=== PATIENT | male | born 1950 ===

== ENCOUNTER 2024-04-14 13:07 | Outpatient (REF) | payer MEDICARE, OTHER, SELFPAY ==
--- NOTE | ~2024-04-14 | XR_ITS ---
CLINICAL HISTORY: M54.16 - Radiculopathy, lumbar region 4 views lumbar spine Comparison: None Findings: There is mild lower thoracic dextroscoliosis. No acute fractures. There are significant multilevel lumbar spine degenerative changes with osteophyte formation most significant within the lower lumbar spine with significantfacet bony sclerosis. There is no change in alignment on neutral, flexion and extension views with gross anatomic alignment. No acute fractures. Mild degenerative changes SI joints. IMPRESSION: No acute findings. Multilevel spondylosis as above Mild degenerative changes SI joints This document has been electronically signed by: Roosevelt Daniels MD on 04/15/2024 05:55:36
== END 2024-04-14 13:08 | disposition home or self-care (01) ==
LOC: HO.HOSX 13:07
PROVIDERS: PCP Family Medicine; Visit Provider Physician Assistant
DX: M54.16 Radiculopathy, lumbar region (principal)
CPT/HCPCS: 72110; 99202

== ENCOUNTER 2024-04-14 13:07 | Outpatient (AMB) | payer MEDICARE, OTHER, SELFPAY ==
--- NOTE | 2024-04-14 09:21 | HO.SPINEOV ---
Vital Signs 04/14/24 13:12 Height 5 ft 6 in Weight 170 lb BMI 27.4 Intake Visit Reasons: low back pain and sciatica Intake Note: Mr. Hernandez is here today c/o Right sided sciatica pain. 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 Valdes, Thank you for referring David to our office today. He is a pleasant 74-year-old male who comes in today with a chief complaint of right leg pain. He states this has been ongoing for about a year, in initially started as low back pain, but now only encompasses his right leg. He denies any known inciting incident. When describing his pain he starts his hand near the right upper thigh on the lateral side and runs it all the way down the lateral aspect of his right lower extremity terminating near the calf. He denies any numbness/tingling associated with the pain. When describing the pain he says it is a dull pain that does not feel like it is radiating from his back but rather starts near his right lateral thigh and shoots down his leg. He reports this pain can be induced by sitting for a long period of time and then standing up and attempting to mobilize. He denies any issues with walking, and states that walking actually helps to alleviate his pain. He has been to physical therapy, last completed a couple of months ago. He has attempted cortisone injections with the our office, and states he obtained about 75% relief from the injections each time. Unfortunately, he was originally getting 1-2 months of relief, and is now only having a few weeks of relief before his pain returns. 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 He is currently taking Tylenol and gabapentin in an effort to mitigate the pain. PMH: Lupus, hyperlipidemia, BPH. The patient denies any surgical history. Social hx: The patient does not smoke, reports no substance use. Medications: Warfarin, atorvastatin, alfuzosin. Allergies: NKDA Physical exam: David has 5/5 strength in his upper and lower extremities. He ambulates well and rises from a seated position without difficulty. He has no significant sensational deficits on exam. His reflexes are 2+ intact. His gait is nonantalgic and non spastic. (-) bilateral straight leg raise, (-) Rogel's, (-) Clonus. Imaging review: MRI of the lumbar spine completed at [facility] shows moderate-severe central canal stenosis at L3-4 with bilateral foraminal stenosis, worse on the right. There is also moderate-severe central canal stenosis at L4-5, and again there is bilateral foraminal stenosis, but it appears similar on both sides. There is also fairly significant facet arthropathy at these levels. Impression: David is a pleasant 74-year-old male who comes in today with a chief complaint of shooting pain down his right lower extremity. He denies any known inciting incident, and states the pain initially began as back pain about a year ago and is now isolated to his right leg. It is not associated with ambulation, and primarily occurs with positional changes. His MRI imaging shows right-sided foraminal stenosis at both L3-4 and L4-5. The L3-4 segment seems to have more severe foraminal stenosis on the right. I believe this is likely the causative segment, but his pain very well could be attributed to the compression at L4-5 as well given the dermatomal distribution of his pain. I would like to obtain injection records for David to see exactly what level he had injections as this will give us good surgical indication for what should be addressed. I would also like to send him for a set of flexion/extension x-rays as the radiologist reports he sees a slight listhesis of L4-5 on MRI, which may be contributing to his issue. After his injection records are obtained in his x-rays are complete I will review his case with Dr. Szymanski, and call the patient back with a surgical decision. He would likely benefit from right sided lumbar decompression at both L3-4, and L4-5. Thank you for allowing us to care for your patient. The total time spent with this visit with this patient was 45 minutes reviewing history, physical exam, MRI imaging review, and implementation of treatment plan or further diagnostic testing. Edwar Szymanski MD,PhD [facility] Orders: Orders XR lumbar spine 4V min 04/14/24 M54.16 - Radiculopathy, lumbar region Coding Level of Care Code New Pt Level 4 (20554) Diagnoses Lumbar radiculopathy M54.16
[2024-04-14 13:12] VITALS: BMI 27.4
== END 2024-04-14 13:54 | disposition home or self-care (01) ==
PROVIDERS: PCP Family Medicine; Visit Provider Physician Assistant
DX: M54.16 Radiculopathy, lumbar region (principal)
CPT/HCPCS: 99204

== ENCOUNTER → 2024-04-14 14:05 | Outpatient (BNV) | payer MEDICARE, OTHER, SELFPAY | PROVIDERS: PCP Family Medicine; Visit Provider Radiology Diagnostic Radiology | DX: M47.26 Other spondylosis with radiculopathy, lumbar region (principal) | CPT/HCPCS: 72110 ==

== ENCOUNTER 2024-06-23 07:25 | Day surgery (SDC) | payer MEDICARE, OTHER, SELFPAY ==
[2024-06-09 10:22] VITALS: BP 150/76; PULSE 79; RESP 16; O2SAT 98; BMI 27.9
--- NOTE | 2024-06-09 10:46 | HO.ANESPROP2 ---
Documented by User: Amparo Siddiqi NP 06/22/24 09:18 HPI - Anesthesia Eval Consult details Narrative: 74yo M for L3-4, L4-5 Decompression No recent illness No CP/SOB with stairs at home. Limited to leg/back pain Coumadin for hx DVT, +antiphospholipid antibody, x1 ~ 10 years ago SLE - plaquinel. Symptoms include upper extremity pain. No oral steroids Thymoma - dx'd ~ 10-15 years ago, stable over the course of monitoring when first dx'd, no issues with it since, no dx myesthenia Asthma - albuterol ~ 1 x week [facility] Active Problems Active Problems: All Active Problems Lumbar radiculopathy (Acute) Past Medical History Medical History Back pain Habitual snoring Asthma SOB (shortness of breath) Antiphospholipid antibody positive History of simple renal cyst Hyperlipidemia Systemic lupus erythematosus Anxiety Thymoma Depression DVT (deep venous thrombosis) Hypercoagulable state Cerebral hemorrhage Environmental allergies Arthritis Erectile dysfunction Former smoker Family History Family history of problems with anesthesia: No Surgical History Surgical History (Updated 06/08/24 @ 12:11 by Tawanna Pandya RN) Hx of tonsillectomy H/O colonoscopy History of Problems with Anesthesia: No Social History Social History Are you a primary insurance healthcare representative to a significant other at home: No Do you presently have visiting nurse or other home services: No Patient Tobacco Use Status: Never used Tobacco Use of substances other than those prescribed or required for medical reasons: No Have you been hit, kicked, punched, or otherwise hurt by someone within the past year? If so, by whom?: No Are you DNR?: No Advance Directives: No Advance Directives Information Provided: Yes Advance Directives on File: No Poor oral hygiene: Yes Meds Allergies Allergy/AdvReac Type Severity Reaction Status Date / Time No Known Allergies Allergy Verified 04/14/24 13:13 Home Medications ?Medication ?Instructions ?Recorded ?Confirmed ?Last Taken ?Type albuterol sulfate 90 mcg/actuation 2 puff inhalation Q6H PRN 06/08/24 06/08/24 Unknown History aerosol inhaler Shortness Of Breath Or Wheezing alfuzosin 10 mg tablet,extended 10 mg PO BEDTIME 06/08/24 06/08/24 Unknown History release 24 hr atorvastatin 10 mg tablet 10 mg PO DAILY 06/08/24 06/08/24 Unknown History cholecalciferol (vitamin D3) 50 50 mcg PO DAILY 06/08/24 06/08/24 Unknown History mcg (2,000 unit) tablet (Vitamin D3) clonazepam 0.5 mg tablet 0.25 mg PO BEDTIME PRN anxiety 06/08/24 06/08/24 Unknown History cyanocobalamin (vitamin B-12) 1,000 mcg PO DAILY 06/08/24 06/08/24 Unknown History 1,000 mcg tablet fluticasone propionate 50 1 spray intranasal DAILY PRN 06/08/24 06/08/24 Unknown History mcg/actuation nasal Allergy Symptoms spray,suspension gabapentin 100 mg capsule 100 mg PO BID 06/08/24 06/09/24 Unknown History hydroxychloroquine 200 mg tablet 200 mg PO DAILY 06/08/24 06/09/24 06/23/24 History loratadine 10 mg tablet 10 mg PO DAILY 06/08/24 06/08/24 Unknown History sertraline 50 mg tablet 50 mg PO DAILY 06/08/24 06/08/24 06/23/24 History tadalafil 10 mg tablet 10 mg PO DAILY 06/08/24 06/08/24 Unknown History warfarin 5 mg tablet 5 mg PO 2XW 06/08/24 06/09/24 Unknown History warfarin 7.5 mg tablet 7.5 mg PO 5XW 06/08/24 06/09/24 06/18/24 History multivitamin 1 tab PO DAILY 06/09/24 06/09/24 Unknown History Exam Height,Weight and Vital Signs: Height 5 ft 6 in Weight 78.471 kg Last Vital Signs Pulse 79 06/09/24 10:22 Resp 16 06/09/24 10:22 BP 150/76 H 06/09/24 10:22 Pulse Ox 98 06/09/24 10:22 O2 Del Method Room Air 06/09/24 10:22 Pertinent Lab Results Pertinent Lab Results: Lab Results 06/09/24 Range/Units 11:19 WBC 7.0 (4.8-10.8) X10*3/uL RBC 4.65 (4.60-5.80) X10*6/uL Hgb 14.9 (14.0-18.0) g/dl Hct 43.4 (42.0-52.0) % MCV 93.3 (80.0-98.0) fL MCH 32.0 (27.0-33.0) pg MCHC 34.3 (31.0-36.0) g/dl RDW 13.4 (11.0-16.0) % Plt Count 173 (160-400) X10*3/uL MPV 10.1 (9.4-12.4) fL Absolute Nucleated RBC 0.000 (0.0-0.012) X10*3/uL Nucleated RBC % (auto) 0.0 (0.0-0.2) /100WBC Sodium 143 (135-145) mmol/L Potassium 4.8 (3.3-5.1) mmol/L Chloride 108 (96-108) mmol/L Carbon Dioxide 28 (22-29) mmol/L Anion Gap 12 (12-20) BUN 18 H (9-16) mg/dL Creatinine 1.00 (0.5-1.4) mg/dL Estim Creat Clear Calc 63.8 Estimated GFR > 60 Random Glucose 85 (60-115) mg/dL Calcium 9.6 (8.4-10.2) mg/dL Airway Mallampati Class: III TM Dist: >3cm Neck ROM: Full Loose/Missing/Broken Teeth: Yes (Missing molars, crowned molars) Heart: RRR Lungs: CTAB Assessment and Plan Assessment Anesthesia Assessment: Anesthesia Plan Discussed and PAT Visit Final Anesthetic Review Family History of Problems with Anesthesia: No History of Problems with Anesthesia: No Documented by User: Linnette Connor MD 06/23/24 07:41 PMFSH Past Medical History Medical History Back pain Habitual snoring Asthma SOB (shortness of breath) Antiphospholipid antibody positive History of simple renal cyst Hyperlipidemia Systemic lupus erythematosus Anxiety Thymoma Depression DVT (deep venous thrombosis) Hypercoagulable state Cerebral hemorrhage Environmental allergies Arthritis Erectile dysfunction Former smoker Surgical History Surgical History (Updated 06/08/24 @ 12:11 by Tawanna Pandya RN) Hx of tonsillectomy H/O colonoscopy Social History Social History Are you a primary insurance healthcare representative to a significant other at home: No Do you presently have visiting nurse or other home services: No Patient Tobacco Use Status: Never used Tobacco Use of substances other than those prescribed or required for medical reasons: No Have you been hit, kicked, punched, or otherwise hurt by someone within the past year? If so, by whom?: No Are you DNR?: No Advance Directives: No Advance Directives Information Provided: Yes Advance Directives on File: No Poor oral hygiene: Yes Meds Allergies Allergy/AdvReac Type Severity Reaction Status Date / Time No Known Allergies Allergy Verified 04/14/24 13:13 Home Medications ?Medication ?Instructions ?Recorded ?Confirmed ?Last Taken ?Type albuterol sulfate 90 mcg/actuation 2 puff inhalation Q6H PRN 06/08/24 06/08/24 Unknown History aerosol inhaler Shortness Of Breath Or Wheezing alfuzosin 10 mg tablet,extended 10 mg PO BEDTIME 06/08/24 06/08/24 Unknown History release 24 hr atorvastatin 10 mg tablet 10 mg PO DAILY 06/08/24 06/08/24 Unknown History cholecalciferol (vitamin D3) 50 50 mcg PO DAILY 06/08/24 06/08/24 Unknown History mcg (2,000 unit) tablet (Vitamin D3) clonazepam 0.5 mg tablet 0.25 mg PO BEDTIME PRN anxiety 06/08/24 06/08/24 Unknown History cyanocobalamin (vitamin B-12) 1,000 mcg PO DAILY 06/08/24 06/08/24 Unknown History 1,000 mcg tablet fluticasone propionate 50 1 spray intranasal DAILY PRN 06/08/24 06/08/24 Unknown History mcg/actuation nasal Allergy Symptoms spray,suspension gabapentin 100 mg capsule 100 mg PO BID 06/08/24 06/09/24 Unknown History hydroxychloroquine 200 mg tablet 200 mg PO DAILY 06/08/24 06/09/24 06/23/24 History loratadine 10 mg tablet 10 mg PO DAILY 06/08/24 06/08/24 Unknown History sertraline 50 mg tablet 50 mg PO DAILY 06/08/24 06/08/24 06/23/24 History tadalafil 10 mg tablet 10 mg PO DAILY 06/08/24 06/08/24 Unknown History warfarin 5 mg tablet 5 mg PO 2XW 06/08/24 06/09/24 Unknown History warfarin 7.5 mg tablet 7.5 mg PO 5XW 06/08/24 06/09/24 06/18/24 History multivitamin 1 tab PO DAILY 06/09/24 06/09/24 Unknown History Assessment and Plan Final Anesthetic Review NPO: Yes ASA Class: III Final Preanesthetic Review: No Changes in Pt Med Stat, Meds/Allgs Chart Reviewed, Consent Obtained/Reviewed and Anes Risks/Benef Reviewed Patient Risk: Intermediate Procedure Risk: Intermediate Anesthetic Plan Anesthetic Plan: GA Disposition: Standard PACU
[2024-06-09 12:24] LABS: Hematocrit 43.4 % (42.0-52.0); Hemoglobin 14.9 g/dl (14.0-18.0); Mean Corpuscular HGB Conc 34.3 g/dl (31.0-36.0); Mean Corpuscular Volume 93.3 fL (80.0-98.0); Mean Platelet Volume 10.1 fL (9.4-12.4); Platelet Count 173 X10*3/uL (160-400); Red Blood Count 4.65 X10*6/uL (4.60-5.80); Red Cell Distribution Width 13.4 % (11.0-16.0)
[2024-06-09 12:53] LABS: Anion Gap 12 (12-20); Blood Urea Nitrogen 18 mg/dL (9-16); Calcium 9.6 mg/dL (8.4-10.2); Carbon Dioxide 28 mmol/L (22-29); Chloride 108 mmol/L (96-108); Creatinine Clr Calc Pharmacy 63.8; Estimated Glomerular Filt Rate > 60; Glucose Random 85 mg/dL (60-115); Potassium 4.8 mmol/L (3.3-5.1); Sodium 143 mmol/L (135-145)
--- NOTE | ~2024-06-23 | FL_ITS ---
EXAMINATION: FL GUIDANCE ONLY HISTORY: l3-l5 decompression COMPARISON: None available. TECHNIQUE: Fluoroscopy time: 6.0 seconds. Cumulative Dose: 4.2192 mGy. DAP: 1.8353 mGym2 Images: 1. FINDINGS: A single fluoroscopic spot film of the lumbar spine in the lateral projection demonstrates a probe directed toward the L4-5 intervertebral disc space from a posterior approach. FL/FL guidance in OR IMPRESSION: Fluoroscopy during procedure. Please see procedure report for additional information. Electronically signed by: Roosevelt Yeung MD 06/25/2024 08:40 AM EDT
--- NOTE | 2024-06-23 07:00 | MHC.SHP ---
Pre-Procedural Eval Section A - 24 Hr Update-Section A only Date of Service: 06/23/24 Section B - Complete if H&P > 30 days Chief Complaint: Radiculopathy, lumbar region Allergies: Allergies Allergy/AdvReac Type Severity Reaction Status Date / Time No Known Allergies Allergy Verified 04/14/24 13:13 Review of Systems Sugical H&P ROS: Negative: Constitution, Cardiovascular, Respiratory, Neurological, Psychiatric, Hem-Onc, Allergic/Immunologic, Gastrointestinal, Genitourinary, Musculoskeletal, Integumentary, Endocrine and Eyes/Ears/Nose/Throat Exam Surgical H&P Exam: Not Evaluated: HEENT, Not Evaluated: Heart, Not Evaluated: Lungs, Not Evaluated: Extremities, Not Evaluated: Abdomen, Not Evaluated: Skin and Not Evaluated: Neurological Exam Comment: The patient is awake, alert, no acute distress. Proposed surgical incision site is clean with no evidence of recent trauma or surgery. Plan Diagnosis/Plan: Unchanged I have reviewed the history and physical and performed a pertinent physical examination on my patient. No changes have occurred unless specified. Plan remains the same, L3-4, L4-5 lumbar decompression. Time Spent With Patient Time: Total time managing care of this patient today _15___ minutes.
[2024-06-23 07:58] VITALS: BMI 27.7
[2024-06-23 08:01] VITALS: BP 139/73; PULSE 91; RESP 16; TEMP 36.5; O2SAT 97
[2024-06-23 08:06] LABS: Prothrombin Time 11.4 SEC (10.9-12.4)
[2024-06-23] MEDS: methocarbamoL 750 MG TABLET PO (08:10)
[2024-06-23] MEDS: Gabapentin 300 MG CAPSULE PO (08:10)
[2024-06-23] MEDS: Lactated Ringers 1,000 ML 100 ML IVCONT (08:18)
[2024-06-23] MEDS: ceFAZolin Sodium/Dextrose,Iso 2 GM/50 ML PIGGYBACK IV (08:35)
--- NOTE | 2024-06-23 09:36 | P.OP_ITS ---
Operative Note Operative Note Date of Service: 06/23/24 Narrative: Preoperative Diagnosis: L3-4, L4-5 spinal stenosis/lateral recess stenosis/neural foraminal stenosis Operation: Right L3-4, L4-5 Laminotomy, Partial facetectomy and foraminotomy with use of microscope Consent Informed Consent was obtained for this operation. I have explained the nature, purpose and benefits of the operation. I have discussed the risks and benefit of the operation including possible complications or adverse events with patient/family. Alternative(s) were discussed with the patient with their relative benefits and risks as well as the consequences of not accepting the operation were included in obtaining consent. Surgeon: ZAHRAA MAIN MD, PHD Procedure Assisted By: Edwar Jade Pac Description of Procedure This patient is suffering from right lumbar radiculopathy. MRI shows modera [id number] central spinal stenosis L3-4 and L4-5 with lateral recess stenosis.. The patient was offered a decompression. The procedure complications were explained. The patient was consented. The patient was brought to the operating room and endotracheally intubated. The patient was turned in prone position on the Diaz frame. Prep and drape was done followed by timeout. The Physician assistant warehouse manager provided access. A mid lumbar incision was made followed by release of the paravertebral muscle on the right side to expose the L3-4 and L4- 5 lamina and facet joints. An intraoperative x-ray was obtained to confirm the correct level. The microscope was brought in. I took over the procedure. The high-speed drill was used to do a right L3-4 laminotomy until flavum ligament was reached. A #2 Kerrison was used to expand the laminotomy near flush to the pedicles and to include a partial facetectomy. The flavum ligament was opened and resected with a #3 Kerrison to decompress the underlying thecal sac. The flavum ligament was removed to decompress the lateral recess and the exiting L4 nerve root. A long nerve hook could be easily passed along the medial side of the pedicle as a sign of adequate decompression. Then attention was turned to the L4-5 level. A left L4-5 hemilaminotomy was done. The laminotomy was extended including a partial facetectomy. Severe stenosis was present at this level. Flavum ligament was resected to decompress the underlying thecal sac and exiting nerve root. The microscope was removed. Hemostasis was done. The physician assistant warehouse manager close the incision in 2 layers. Steri-Strips were used to approximate incision. An OpSite with Tegaderm was used to cover the incision. All sponge needle counts were correct. Patient was extubated and transported in stable is to recovery room. Anesthesia: General Estimated Blood Loss (ml): 25 Complications: None Duration of Surgery: Under 60 Minutes Postoperative Plan: Discharge to home Preoperative Diagnosis:
--- NOTE | 2024-06-23 09:44 | PM.DS ---
DS: Providers Provider Date of Service: 06/23/24 Date of discharge: 06/23/24 Primary care physician: Devorah Barnett MD DS: Summary Time Attestation Discharge Coordination Time (in mins): 12 Quality: Safe Use of Opioids Does Pt have an Active Cancer Diagnosis on the Problem List?: No Quality: Stroke Does the patient have a stroke diagnosis?: No Physical Exam Vital Signs: Vital Signs: Last Vital Signs Temp 97.7 F 06/23/24 08:01 Pulse 91 06/23/24 08:01 Resp 16 06/23/24 08:01 BP 139/73 06/23/24 08:01 Pulse Ox 97 06/23/24 08:01 O2 Del Method Room Air 06/23/24 08:01 BMI result Body Mass Index 27.7 DS: Data Data Completed and Pending Labs on day of discharge: Laboratory Results - last 24 hr 06/23/24 07:54 PT 11.4 INR 1.0 Discharge Plan Discharge Patient Disposition: Home, Self-Care Referrals: Devorah Barnett MD [Primary Care Provider] - 1 Week Discharge Medications: New oxycodone 5 mg tablet 5 mg PO Q6H PRN (Reason: pain) Qty: 30 0RF Rx Instructions: Partial Fill upon patient request. Continued atorvastatin 10 mg tablet 10 mg PO DAILY clonazepam 0.5 mg tablet 0.25 mg PO BEDTIME PRN (Reason: anxiety) cyanocobalamin (vitamin B-12) 1,000 mcg Tablet 1,000 mcg PO DAILY gabapentin 100 mg capsule 100 mg PO BID hydroxychloroquine 200 mg tablet 200 mg PO DAILY albuterol sulfate 90 mcg/actuation Hfa Aerosol Inhaler 2 puff INHALATION Q6H PRN (Reason: Shortness Of Breath Or Wheezing) fluticasone propionate 50 mcg/actuation Upper Tract,Suspension 1 spray INTRANASAL DAILY PRN (Reason: Allergy Symptoms) Rx Instructions: administer into each nostril sertraline 50 mg Tablet 50 mg PO DAILY loratadine 10 mg Tablet 10 mg PO DAILY alfuzosin 10 mg tablet extended release 24 hr 10 mg PO BEDTIME tadalafil 10 mg tablet 10 mg PO DAILY cholecalciferol (vitamin D3) [Vitamin D3] 50 mcg (2,000 unit) Tablet 50 mcg PO DAILY multivitamin Tablet 1 tab PO DAILY Held warfarin 7.5 mg tablet 7.5 mg PO 5XW Hold Instructions: Resume on 06/26/24. Patient Comments: Sun, Mon, wed, thur, Sat warfarin 5 mg tablet 5 mg PO 2XW Hold Instructions: Resume on 06/26/24. Patient Comments: , Fri Discharge Orders: Discharge Order (Routine); Ordered 06/23/24 Ordered By: Edwar Jade Activity Restrictions/Additional Instructions: After your spinal surgery we ask you to observe the following restrictions/guidelines: Activity: It is normal to feel some discomfort as you increase your activity, but that will improve with time. We ask you avoid heavy lifting or acitivities that cause pain. As a general rule, 8lbs is a safe limit for lifting right after surgery. Walk as much as you feel comfortable but not to exhaustion. You will feel extra tired the first few days after surgery. Stay well hydrated. It is OK to walk up and down stairs You may return to driving when you are off narcotics (such as vicodin, oxycodone, dilaudid, etc), and you are back to normal functional capacity. If you have any concerns please check with office before driving. Return to work is specific to each patient and each surgery, so please speak with your doctor/PA at first follow up. Please bring paperwork such as FMLA at that time if you need it filled out. Medications: You may restart your Coumadin on day 3 postoperative. We recommend you take 1,000mg Tylenol every 8 hours for the first few weeks after surgery, if you do not have any liver issues and can tolerate this medication. Do not exceed 4,000mg daily. We will give you a short supply of narcotics after surgery (usually one weeks worth). If you need more please call the office but do not use more than prescribed. You will need to give our office 48 hours notice if you need narcotics refilled and we do not fill narcotics on weekends or evenings. If you are on a narcotic, it is a good idea to take a stool softener such as colace or senna to avoid constipation If you take blood thinner such as aspirin, Plavix, Coumadin, Effient, Eliquis etc for conditions such as Afib, DVT, Pulmonary embolus, coronary disease, stents etc please speak with your surgeon about specific details as to when you can resume these medications. You can resume NSAIDs on post op day 1 (eg: Motrin, Naproxen, etc). Follow up: Please call the office, , after surgery to arrange a 3 week follow up for wound check. Wound Care: You may remove your dressing on the first day after surgery. ?You may ?leave open to air. Please do not remove the steri strips underneath. they will fall off on their own in one week. IT IS NORMAL FOR THE WOUND TO OOZE OR BE BLOODY FOR A FEW DAYS AFTER SURGERY. ?IF THIS HAPPENS JUST PLACE NEW DRESSING OVER IT TO AVOID STAINING CLOTHES. You may shower on post op day # 1 We ask that you do not let the water soak the wound. If it does get wet, just towel dry lightly. Please do not scrub your incision or place any type of chemical/ointment on the wound. No tub baths, pools or jacuzzis for one month. If you have any leaking or redness from your wound, or fevers, please call the office. Print Language: Croatian
[2024-06-23 09:58] VITALS: BP 142/80; PULSE 96; RESP 16; TEMP 37.1; O2SAT 98
[2024-06-23 10:03] VITALS: BP 147/77; PULSE 84; RESP 18; O2SAT 100
[2024-06-23 10:08] VITALS: BP 138/80; PULSE 88; RESP 17; O2SAT 96
[2024-06-23 10:13] VITALS: BP 138/75; PULSE 90; RESP 17; O2SAT 95
[2024-06-23 10:28] VITALS: BP 130/70; PULSE 86; RESP 20; TEMP 36.4; O2SAT 96
== END 2024-06-23 11:02 | disposition home or self-care (01) ==
PROVIDERS: Nurse Practitioner; PCP Family Medicine; Visit Provider Neurological Surgery
PROC: (CPT 63047; principal; 2024-06-23 08:00)
DX: M48.061 Spinal stenosis, lumbar region without neurogenic claudication (principal); M54.16 Radiculopathy, lumbar region; M54.50 Low back pain, unspecified; M79.661 Pain in right lower leg; M32.9 Systemic lupus erythematosus, unspecified; E78.5 Hyperlipidemia, unspecified; Z79.01 Long term (current) use of anticoagulants; Z79.899 Other long term (current) drug therapy
CPT/HCPCS: 63047; 63048; 36415; 80048; 85027; 85610; J0131; J0690; J1100; J1596; J1885; J2250; J2371; J2405; J2704; J3010

== ENCOUNTER → 2024-06-23 07:25 | Outpatient (BNV) | payer MEDICARE, OTHER, SELFPAY | PROVIDERS: PCP Family Medicine; Visit Provider Neurological Surgery | DX: M48.062 Spinal stenosis, lumbar region with neurogenic claudication (principal) | CPT/HCPCS: 63047; 63048; 99499 ==

== ENCOUNTER 2024-07-13 13:55 | Outpatient (AMB) | payer MEDICARE, OTHER, SELFPAY ==
--- NOTE | 2024-07-13 13:57 | HO.SPINEOV ---
Intake Visit Reasons: 1st post op Intake Note: Mr. Hernandez is here today for his 1st post op appointment. 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 Szymanski. He comes in today for his 1st postoperative visit. He states that he continues to have some discomfort in his low back, and will occasionally have shooting radicular pains down his right leg that persist. He reports that it is very difficult immediate postoperative course and was in what sounds like constant pain for 2 days after surgery. Thankfully that pain has subsided significantly but he still expresses frustrations that he remains in pain today at his 1st postoperative visit. We extensively discussed the postoperative healing course, and I answered all questions that he had. No new neurological deficits. The patient ambulates well and rises from a seated position without difficulty. His posterior incision site is clean, dry, and well healing. There is some notable palpable edema around the incision site, however there is no evidence of fluctuance or erythema. I would like to have David follow up with us again routinely in 6 weeks. If his pain continues that the current intensity we may need to see him sooner and obtain x-rays. Edwar Szymanski MD,PhD [facility] Coding Level of Care Code Global (67181) Diagnoses Lumbar radiculopathy M54.16
== END 2024-07-13 14:53 | disposition home or self-care (01) ==
LOC: HO.HNS 13:56
PROVIDERS: PCP Family Medicine; Visit Provider Physician Assistant
DX: M54.16 Radiculopathy, lumbar region (principal)
CPT/HCPCS: 99024

== ENCOUNTER → 2024-07-13 13:55 | Outpatient (BNVA) | payer MEDICARE, OTHER, SELFPAY | PROVIDERS: PCP Family Medicine; Visit Provider Physician Assistant | DX: M54.16 Radiculopathy, lumbar region (principal) | CPT/HCPCS: 99212 ==

== ENCOUNTER 2024-08-25 13:54 | Outpatient (AMB) | payer MEDICARE, OTHER, SELFPAY ==
--- NOTE | 2024-08-25 13:57 | A.SPINEOV_ITS ---
Intake Visit Reasons: 2nd post Intake Note: Mr. Hernandez is here today for his 2nd post op. Hand Hardener Required: No Allergies No Known Allergies Allergy (Verified 08/25/24 13:58) Assessment & Plan Assessment & Plan (1) Lumbar radiculopathy: Code(s): M54.16 - Radiculopathy, lumbar region Category: Medical Plan David is a 74 year old male who underwent Right L3-4, L4-5 Laminotomy, Partial facetectomy and foraminotomy on 06/23/[address] Szymanski. He comes in today for his 2nd postoperative visit. To recap during his last visit he reported that he continued to have some discomfort in his low back, and will occasionally had shooting radicular pains down his right leg. 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 He does feel better after he gets up, ambulates, and starts walking around throughout the day. He asked several questions regarding the postoperative healing course, all of which I answered to the best of my ability. No new neurological deficits. The patient ambulates well and rises from a seated position without difficulty. His posterior incision site is clean, dry, and well healing. Ainsley also inquired about going to physical therapy during this session today. I believe this is a reasonable request, he stated he would like to figure out where he wants to go and we will reach back out to our office when he decides what he wants to do for physical therapy. Edwar Szymanski MD,PhD [facility] Coding Level of Care Code Global (17620) Diagnoses Lumbar radiculopathy M54.16
== END 2024-08-25 14:54 | disposition home or self-care (01) ==
LOC: HO.HNS 13:55
PROVIDERS: PCP Family Medicine; Visit Provider Physician Assistant
DX: M54.16 Radiculopathy, lumbar region (principal)
CPT/HCPCS: 99024

== ENCOUNTER → 2024-08-25 13:54 | Outpatient (BNVA) | payer MEDICARE, OTHER, SELFPAY | PROVIDERS: PCP Family Medicine; Visit Provider Physician Assistant | DX: M54.16 Radiculopathy, lumbar region (principal) | CPT/HCPCS: 99212 ==